=== PATIENT | male | born 1970 | race Caucasian/White ===

== ENCOUNTER 2017-03-21 22:21 | Inpatient (IN) | payer SELFPAY ==
[~2017-03-21] VITALS: Ht 180.3 cm; Wt 97.2 kg
[2017-03-21 22:46] LABS: PROTHROMBIN TIME 11.4 SEC (10.2-12.9)
[2017-03-21 23:00] LABS: TROP-I INTERPRETATION NEGATIVE; TROPONIN-I < 0.01 ng/mL (0.0-0.30)
[2017-03-21 23:09] LABS: AMYLASE 29 IU/L (1-118)
[2017-03-21 23:29] LABS: LIPASE 196 U/L (1.0-51.0)
[2017-03-21 23:38] LABS: PTT ND SEC (25-37)
[2017-03-22] VITALS (18 sets, daily range): BP systolic 93–134; BP diastolic 47–102
[2017-03-22 02:00] LABS: EOSINOPHIL (%) 4.4 % (0-5); EOSINOPHIL COUNT 0.5 K/uL (0-0.3); HEMATOCRIT 43.2 % (38.0-50.0); IMMATURE GRANULOCYTE (%) 0.5 % (0.0-0.7); IMMATURE GRANULOCYTE COUNT 0.1 K/uL; INSTRUMENT ABS NEUTROPHIL CT 5.8 K/uL; LYMPHOCYTE COUNT 3.9 K/uL (1.0-2.8); MCH 27.6 PG (29.0-34.0); MCHC 32.6 G/DL (30.0-36.0); MCV 84.7 FL (86-99); MEAN PLAT.VOLUME 9.6 uM^3 (9.0-12.4); MONOCYTE (%) 11.4 % (3-12); MONOCYTE COUNT 1.3 K/uL (0-0.8); NEUTROPHIL (%) 49.9 % (45-76); NEUTROPHIL COUNT 5.8 K/uL (1.8-6.4); PLATELET COUNT 342 K/uL (156-360); RBC DIS.WIDTH-CV 13.5 % (11.8-14.6); WHITE BLOOD COUNT 11.7 K/uL (4.1-10.2)
[2017-03-22 02:09] LABS: CHLORIDE 101 mEq/L (99-109); SODIUM 137 mEq/L (136-147)
[2017-03-22 02:11] LABS: GLUCOSE 252 mg/dL (70-99)
[2017-03-22 02:13] LABS: ANION GAP 18 MEQ/L (2-14)
[2017-03-22 02:15] LABS: GFR ESTIMATE (CALCULATED) > 59 mL/min/
[2017-03-22 02:16] LABS: UREA NITROGEN (BUN) 20 mg/dL (9-23)
[2017-03-22] MEDS ORDERED: JARDIANCE25 MG PO (02:28)
[2017-03-22] MEDS ORDERED: GLUCOTROL XL5 MG PO (02:29)
[2017-03-22] MEDS ORDERED: GLUCOPHAGE1000 MG PO (02:29)
[2017-03-22] MEDS ORDERED: ZESTRIL10 MG PO (02:30)
[2017-03-22] MEDS ORDERED: POTASSIUM CHLO10 ME4 PO (02:31)
[2017-03-22 02:37] LABS: METH RESISTANT S AUREUS PCR POSITIVE (NEGATIVE)
[2017-03-22 02:39] LABS: PROBE CHECK PASS
[2017-03-22 05:06] LABS: EOSINOPHIL (%) 2.3 % (0-5); EOSINOPHIL COUNT 0.3 K/uL (0-0.3); HEMATOCRIT 39.3 % (38.0-50.0); IMMATURE GRANULOCYTE (%) 0.3 % (0.0-0.7); INSTRUMENT ABS NEUTROPHIL CT 7.8 K/uL; LYMPHOCYTE COUNT 2.6 K/uL (1.0-2.8); MCH 28.2 PG (29.0-34.0); MCHC 33.3 G/DL (30.0-36.0); MCV 84.7 FL (86-99); MONOCYTE (%) 11.8 % (3-12); MONOCYTE COUNT 1.4 K/uL (0-0.8); NEUTROPHIL (%) 63.9 % (45-76); NEUTROPHIL COUNT 7.8 K/uL (1.8-6.4); PLATELET COUNT 295 K/uL (156-360); RBC DIS.WIDTH-CV 13.5 % (11.8-14.6); RBC DIS.WIDTH-SD 41.6 % (39-53); RED BLOOD COUNT 4.64 M/uL (4.00-5.50); WHITE BLOOD COUNT 12.2 K/uL (4.1-10.2)
[2017-03-22 05:35] LABS: ANION GAP 13 MEQ/L (2-14); CHLORIDE 105 MEQ/L (99-109); CREATINE KINASE 65 IU/L (1-294); GFR ESTIMATE (CALCULATED) > 59 mL/min/; GLUCOSE 195 mg/dL (70-99); HDL CHOLESTEROL 21 MG/DL (Desirable>=40); LDL CHOLESTEROL 35 mg/dL (Desirable<100); NON-HDL CHOLESTEROL 75 mg/dL (Desirable<160); POTASSIUM 4.2 MEQ/L (3.7-5.4); SAMPLE HEMOLYSIS CHECK 0; SAMPLE ICTERIC CHECK 0; SAMPLE LIPEMIA CHECK 0; SODIUM 136 MEQ/L (136-147); TOTAL CHOLESTEROL 96 mg/dL (Desirable<200); TOTAL CK 65 IU/L (1-294); TRIGLYCERIDES 200 MG/DL (Normal: <150); UREA NITROGEN (BUN) 18 mg/dL (9-23)
[2017-03-22 05:38] LABS: TROP-I INTERPRETATION POSITIVE
[2017-03-22 06:07] LABS: CK-MB 6.9 ng/mL (0.0-4.9)
[2017-03-22 08:31] LABS: Estimated Average Glucose 292 mg/dL (70-123); HEMOGLOBIN A1c (GLYCOHEMOGLOB) 11.8 % HGB (Below 5.7)
[2017-03-22 12:53] LABS: CREATINE KINASE 78 IU/L (1-294); TOTAL CK 78 IU/L (1-294)
[2017-03-22 12:58] LABS: TROP-I INTERPRETATION POSITIVE; TROPONIN-I 0.63 ng/mL (0.0-0.30)
[2017-03-22 13:01] LABS: CK-MB 4.5 ng/mL (0.0-4.9)
[2017-03-22 13:38] LABS: POINT-OF-CARE METER ID UU13113803
[2017-03-22 17:53] LABS: POINT-OF-CARE METER ID UU13113748
[2017-03-22 18:28] LABS: CK-MB 4.3 ng/mL (0.0-4.9)
[2017-03-22 18:32] LABS: TROP-I INTERPRETATION INDETERMINATE; TROPONIN-I 0.45 ng/mL (0.0-0.30)
[2017-03-22 18:42] LABS: CREATINE KINASE 54 IU/L (1-294); TOTAL CK 54 IU/L (1-294)
[2017-03-22 22:08] LABS: POINT-OF-CARE METER ID UU13113803
[2017-03-23] VITALS (9 sets, daily range): BP systolic 89–118; BP diastolic 40–75
[2017-03-23 05:58] LABS: ANION GAP 7 MEQ/L (2-14); CHLORIDE 105 MEQ/L (99-109); GFR ESTIMATE (CALCULATED) > 59 mL/min/; GLUCOSE 182 mg/dL (70-99); POTASSIUM 4.8 MEQ/L (3.7-5.4); SAMPLE HEMOLYSIS CHECK 0; SAMPLE ICTERIC CHECK 0; SAMPLE LIPEMIA CHECK 0; SODIUM 136 MEQ/L (136-147); UREA NITROGEN (BUN) 19 mg/dL (9-23)
[2017-03-23] MEDS ORDERED: NITROSTAT0.4 MG SL (12:05)
[2017-03-23] MEDS ORDERED: ATORVASTATIN CA80 MG PO (12:05)
[2017-03-23] MEDS ORDERED: LISINOPRIL2.5 MG PO (12:05)
[2017-03-23] MEDS ORDERED: BRILINTA90 MG PO (12:05)
[2017-03-23] MEDS ORDERED: LOPRESSOR25 MG PO (12:05)
[2017-03-23] MEDS ORDERED: ASPIR-LOW81 MG PO (12:05)
== END 2017-03-23 15:52 | disposition home or self-care (01) | DRG 247 ==
LOC: EME 22:21 → ENRESERV 22:39 → CATH 23:00 → ENRESERV 23:00 → EME 23:00 → 4WEST 23:00 → 2SOUTH 03-22 00:45 → 4WEST 03-22 00:45
PROVIDERS: Internal Medicine Cardiovascular Disease
DX: I21.29 ST elevation (STEMI) myocardial infarction involving other sites (principal); I21.19 ST elevation (STEMI) myocardial infarction involving other coronary artery of inferior wall; E11.9 Type 2 diabetes mellitus without complications; E78.5 Hyperlipidemia, unspecified; F17.200 Nicotine dependence, unspecified, uncomplicated; I10 Essential (primary) hypertension; I25.110 Atherosclerotic heart disease of native coronary artery with unstable angina pectoris; Z68.29 Body mass index [BMI] 29.0-29.9, adult
CPT/HCPCS: 80048; 80048 91; 80061; 82150; 82550; 82550 91; 82553; 82948; 83036; 83690; 84484; 85025; 85025 91; 85347; 85610; 85730; 87641; 93005; 93306; 94799; 99281; 99285; C1725; C1769; C1874; C1887; C1894; J0461; J1644; J1815; J2250; J2405; J3010; J3246